=== PATIENT | male | born 1985 ===

== ENCOUNTER 2019-07-10 12:09 | Emergency (ER) | payer SELFPAY ==
[2019-07-10 12:09] VITALS: BP 138/78; PULSE 120; RESP 5; TEMP 37.2; O2SAT 94; BMI 22.6
[2019-07-10] MEDS: NALOXONE 0.4 MG/ML VIAL IV (12:09)
[2019-07-10] MEDS: NALOXONE 1 MG/ML SYRINGE 0.4 MG NASAL (12:12)
--- NOTE | 2019-07-10 12:52 | PC.NURSE ---
1209: UMANG LUNDBERG--Pt arrived to ED by kayla dumont wheeling him in after being found unresponsive outside. intermittent apnea, responsive to painful stimuli. taken to rm 7, Narcan given IN 0.4 mg x 2 in separate intervals. pt responsive. track lee on BL arms and neck. Pt acting suspicious. HR 120's BP 140's systolic. managing his own airway. denies drug use. Pt refuses to tell RN his name. attached to cardiac monitoring. pt promptly ripped off all leads and stickers and refuses to stay on stretcher. 1230: pt on 1:1 obs by this RN. pacing around room, asking for water. provided. 1255: food provided. pt got himself dressed. pacing. asking to leave. aware and in to speak to pt. pt states headache and refusing tylenol. awaiting DC paperwork
[2019-07-10 13:10] VITALS: PULSE 118; RESP 14; O2SAT 99
--- NOTE | 2019-07-10 18:55 | ED.OVERDOSE ---
HPI - Overdose General Chief Complaint: Toxicology Problem Stated Complaint: Found in parking lot, was not responding Time Seen by Provider: 07/10/19 12:18 Mode of arrival: Wheelchair History of Present Illness HPI Narrative: 34-year-old gentleman found minimally responsive ?somewhere outside the hospital? brought into the emergency department, significant respiratory depression, pinpoint pupils, new injection lee right antecubital fossa. Review of Systems Review of Systems ROS Unobtainable: Unobtainable due to mental status/LOC Patient History Medical History (Updated 07/10/19 @ 18:59 by Jolly Espinoza MD) Narcotic overdose (Acute) Smoking Status: Current every day smoker Exam Narrative Exam Narrative: General: Pale, minimal respiratory effort, abrasion over the right forehead healing estimated 2 to 3-day-old without significant bruising, scratches over the scalp, well muscled without cachexia. Stirs to deep sternal rub HEENT: Pinpoint pupils Neck: No JVD, no adenopathy Chest: No obvious trauma, poor respiratory effort, no wheezes or rhonchi Cardiac: Mild tachycardia, no murmurs on careful auscultation Abdomen: Soft nontender nondistended Skin: Track lee right antecubital fossa, no signs of cellulitis or abscess Neurologic: Minimally responsive Extremities: No lower extremity edema but hyperemia of his hands and fingers Psych: Unresponsive Initial Vital Signs Initial Vital Signs: Vital Signs Temperature 98.9 F 07/10/19 12:09 Pulse Rate 120 H 07/10/19 12:09 Respiratory Rate 5 L 07/10/19 12:09 Blood Pressure 138/78 07/10/19 12:09 Pulse Oximetry 94 07/10/19 12:09 Course Orders Ordered: Discontinued Medications Acetaminophen (Tylenol) 975 mg PO NOW ONE Stop: 07/10/19 12:37 Last Admin: 07/10/19 12:44 Dose: Not Given Documented by: MOE Naloxone HCl (Narcan) 0.4 mg NASAL NOW ONE Stop: 07/10/19 12:13 Last Admin: 07/10/19 12:12 Dose: 0.4 mg Documented by: MOE Vital Signs Vital signs: Vital Signs - 8 hr 07/10/19 12:09 07/10/19 13:10 Temperature 98.9 F Pulse Rate 120 H 118 H Respiratory Rate 5 L 14 Blood Pressure 138/78 Pulse Oximetry 94 99 MDM - Overdose Medical Records Attestation: I reviewed the patient's medical records. Lab Data Attestation: I reviewed the patient's lab results. [facility] Narrative Medical decision making narrative: Immediate presumption was opiate overdose. Additional physical sequelae suggested the possibility of methamphetamine use to. Began with 0.2 mg of nasal Narcan with minimal response. A 2nd 0.2 mg administered minimal response. A 3rd dose of .4mg intranasal Narcan given. After approximately 4 more minutes as we were beginning to move toward alternate hypoxia sees and beginning a septic workup and moving toward CT scan he clearly woke up in responded to the Narcan. This in is he was awake he was significantly agitated and requesting to be discharged as soon as possible. With the laying tactics we were able to keep him in the department almost an hour with increasing respiratory effort, return to a normal cognitive baseline, and at a point where he seemed clinically and psychiatrically appropriate for self discharge. Continued to declined offer his name or other demographic information. By the end of his visit as we were discussing follow-up at [facility] he did note that he is a Suboxone patient and does have ?all whole bunch? of Narcan at home that can be used should he or any but he knows overdose on opiates. Discharge Plan Departure Patient Disposition: Home Clinical Impression: Narcotic overdose Qualifiers: Encounter type: initial encounter Injury intent: accidental or unintentional Qualified Code(s): T40.601A - Poisoning by unspecified narcotics, accidental (unintentional), initial encounter Discharge Date/Time: 07/10/19 13:00 Instructions: Opioid Use Disorder (Alternative Therapy), DI for Drug Overdose in Adults Activity Restrictions/Additional Instructions: I am glad you are feeling better You were on your way to when you were found outside the ER. You got a dose of Narcan and improved significantly. The only thing that narcan helps with is narcotic overdose. I'm glad you did not today. As you think through all that has happened today, I would encourage you to consider following up with [facility]. It sounds like you are familiar with them and with suboxone. It also sounds like you have had previous experience with Narcan and have used it on others. I am going to give you a prescription for a narcan kit, I would encourage you to fill it and keep it around. It can be used for you or on a friend who has over dosed. If you need more, please return, I'm happy to help.
== END 2019-07-10 13:00 | disposition home or self-care (01) ==
LOC: ED 13:04
PROVIDERS: Emergency Provider Emergency Medicine
DX: T40.601A Poisoning by unspecified narcotics, accidental (unintentional), initial encounter (principal)
CPT/HCPCS: 99283; J2310